=== PATIENT | female | born 1980 | race Hispanic/Latino ===

== ENCOUNTER 2022-01-14 12:35 | Emergency (ER) | payer OTHER ==
[~2022-01-14] VITALS: Ht 154.9 cm; Wt 51.7 kg
[2022-01-14 13:39] LABS: BASOPHILS % (AUTO) 0.8 % (0.0-5.0); EOSINOPHILS % (AUTO) 0.8 % (0.0-8.0); HEMATOCRIT 26.8 % (36-48); LYMPHOCYTES % (AUTO) 31.5 % (21.0-51.0); MEAN CORPUSCULAR HEMOGLOBIN 13.3 pg (27.0-33.0); MEAN CORPUSCULAR VOLUME 53.3 fL (79-99); MONOCYTES % (AUTO) 8.6 % (3.0-13.0); NUCLEATED RED BLOOD CELLS 0.3 % (0.0-0.19); PLATELET COUNT (AUTO) 340 K/uL (130-400); RED BLOOD CELL COUNT(AUTO) 5.03 MIL/uL (4.00-5.50); RED CELL DISTRIBUTION WIDTH 23.4 % (11.0-15.5); WHITE BLOOD COUNT (AUTO) 6.3 K/uL (4.8-10.8)
[2022-01-14 13:49] LABS: ALBUMIN 4.1 g/dL (3.5-5.0); CREATININE 0.5 mg/dL (0.5-1.5); POTASSIUM 3.8 mmol/L (3.5-5.1); TOTAL PROTEIN, SERUM 8.7 g/dL (6.0-8.3)
[2022-01-14 18:53] VITALS: BP 123/77
== END 2022-01-14 19:07 | disposition home or self-care (01) ==
LOC: EDH 12:35
DX: D64.9 Anemia, unspecified (principal)
CPT/HCPCS: 99285; 36430; 82270; 84484; 80053; 85025; 86850; 86900; 86901; 86923; 36415; 93005; P9016